=== PATIENT | male | born 1975 | race Caucasian/White ===

== ENCOUNTER 2018-01-23 06:43 | Emergency (ER) | payer OTHER ==
[~2018-01-23] VITALS: Ht 177.8 cm; Wt 90.7 kg
[~2018-01-23 06:43] MED LIST: BUS10T; DIPH50TA; PAXIL
[2018-01-23 06:53] VITALS: BP 137/96
== END 2018-01-23 08:31 | disposition home or self-care (01) ==
LOC: ER 06:43
DX: S01.311A Laceration without foreign body of right ear, initial encounter (principal); V43.52XA Car driver injured in collision with other type car in traffic accident, initial encounter; Y93.89 Activity, other specified; Y99.8 Other external cause status; Y92.410 Unspecified street and highway as the place of occurrence of the external cause
CPT/HCPCS: 12013; 36415; 70450; 72125; 80320